=== PATIENT | female | born 1990 | race Caucasian/White ===

== ENCOUNTER 2024-05-30 09:37 | Outpatient (CLI) | payer MEDICAID, SELFPAY | END 2024-05-30 09:38 | disposition home or self-care (01) | PROVIDERS: Visit Provider Obstetrics & Gynecology | DX: E66.3 Overweight (principal); Z13.6 Encounter for screening for cardiovascular disorders; Z13.1 Encounter for screening for diabetes mellitus; Z83.3 Family history of diabetes mellitus; Z83.49 Family history of other endocrine, nutritional and metabolic diseases | CPT/HCPCS: 80053; 80061; 84443 ==

== ENCOUNTER 2024-07-31 10:29 | Outpatient (CLI) | payer MEDICAID, SELFPAY | END 2024-07-31 10:30 | disposition home or self-care (01) | PROVIDERS: PCP Internal Medicine; Visit Provider Internal Medicine | DX: M79.7 Fibromyalgia (principal) | CPT/HCPCS: 86038; 86140; 86200; 86431 ==

== ENCOUNTER 2024-11-28 18:03 | Outpatient (CLI) | payer MEDICAID, SELFPAY ==
--- NOTE | 2024-11-28 18:15 | CRLHL7_ITS ---
For Patients: As a result of the Century Cures Act, medical imaging exams and procedure reports are released immediately into your electronic medical record. You may view this report before your referring provider. If you have questions, please contact your health care provider. CLINICAL INDICATION: Right hip pain. COMPARISON IMAGING STUDIES: Not available for direct comparison at time of interpretation. TECHNICAL: Axial, axial oblique, sagittal and coronal PDFS small field of view images of the right hip. Coronal and axial T1 and PDFS large field of view images of the entire pelvis. 1.5 [employer] MR scanner. FINDINGS: RIGHT HIP: There is cam morphology of the right proximal femur with an osseous bump present anteriorly to anterosuperiorly. There is focal superior acetabular retroversion indicating pincer morphology of the acetabulum. Small right hip joint effusion is present. Femoral head and acetabular articular surfaces are smooth without focal articular cartilage defect. No definite labral tear. No paralabral cyst. LEFT HIP: No left hip joint effusion. There is focal superior acetabular retroversion indicating pincer morphology of the acetabulum. The articular surfaces appear maintained on the coronal large [id number] images of the entire pelvis. OSSEOUS STRUCTURES: No fracture. No avascular necrosis. No pathologic marrow replacement process. MUSCULOTENDINOUS STRUCTURES AND BURSAE: Distal gluteal tendons are intact. No trochanteric bursitis. Common hamstring tendons intact. Distal iliopsoas tendons are intact. No iliopsoas bursitis. OTHER FINDINGS: Pubic symphysis intact. Sacroiliac joints maintained. INTRAPELVIC CONTENTS: Trace pelvic free fluid. 2 centimeter right ovarian hemorrhagic cyst versus dermoid. IMPRESSION: 1. 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 Small right hip joint effusion. The articular surfaces are maintained. No definitive labral tear. 2. No fracture, AVN or stress related change. 3. No tendon tearing or bursitis. 4. 2 centimeter right ovarian hemorrhagic cyst versus dermoid. Trace pelvic free fluid. Dictated by Sina Kessler MD @ 11/29/2024 3:24:28 PM (Electronically Signed)
== END 2024-11-28 18:04 | disposition home or self-care (01) ==
LOC: MRI 18:04
PROVIDERS: PCP Internal Medicine; Visit Provider Internal Medicine
DX: M25.552 Pain in left hip (principal); M25.451 Effusion, right hip
CPT/HCPCS: 73721